=== PATIENT | female | born 1960 | race Caucasian/White ===

== ENCOUNTER 2019-06-23 10:01 | Inpatient (IN) ==
[2019-06-23] MEDS ORDERED: Ipratropium/Albuterol Neb 3 ML IH ONE (10:26)
[2019-06-23] MEDS ORDERED: methylPREDNISolone 125 MG/2 ML VIAL IVP ONE (10:26)
[2019-06-23 10:54] LABS: Basophils # 0.1 K/mcL (0.0-0.2); Basophils % 0.3 %; Eosinophils % 0.1 %; Hematocrit 37.1 % (35.3-44.9); Hemoglobin 12.7 g/dL (11.5-15.4); Lymphocytes # 1.8 K/mcL (0.6-4.6); Lymphocytes % 7.4 %; Mean Corpuscular HGB Conc 34.2 g/dL (31.6-35.5); Mean Corpuscular Hemoglobin 32.6 pg (28.0-33.3); Mean Corpuscular Volume 95.4 fL (83.0-100.0); Mean Platelet Volume 8.4 fL (9.4-12.4); Monocytes # 1.8 K/mcL (0.0-1.3); Monocytes % 7.6 %; Neutrophils # 20.1 K/mcL (1.6-8.9); Platelet Count 411 K/mcL (140-400); Red Blood Count 3.89 M/mcL (3.82-4.97); Red Cell Distribution Width 13.7 % (11.5-14.5); Segmented Neutrophils % 83.6 %; White Blood Count 24.1 K/mcL (4.3-11.1)
--- NOTE | 2019-06-23 11:10 | Emergency Department Note ---
Disposition Clinical Impression: Community acquired pneumonia Qualifiers: Laterality: unspecified laterality Qualified Code(s): J18.9 - Pneumonia, unspecified organism Sepsis Qualifiers: Sepsis type: sepsis due to unspecified organism Sepsis acute organ dysfunction status: unspecified Qualified Code(s): A41.9 - Sepsis, unspecified organism Disposition: Admitted As Inpatient Condition: Fair Time of Disposition: 15:43 General Adult HPI - General Chief complaint: ED Upper Respiratory Infection Stated complaint: cough,"choke",congestion Time Seen by Provider: 06/23/19 10:17 Source: patient Limitations: no limitations Nursing Notes Reviewed: Yes Vital Signs Reviewed: Yes - History of Present Illness Pain Scale: 0 - Related Data Home Medications Medication Instructions Recorded Confirmed No Known Home Drugs 06/23/19 06/23/19 Allergies Allergy/AdvReac Type Severity Reaction Status Date / Time No Known Allergies Allergy Verified 06/23/19 10:06 Past Medical History - Past Medical History Medical history: Reports: no medical history - Social History Smoking Status: Current every day smoker Alcohol use: Reports: none Drug use: Reports: none Physical Exam - General Limitations: no limitations General appearance: alert, in no apparent distress Course Vital Signs Temperature 98.1 F 06/23/19 10:03 Pulse Rate 122 06/23/19 10:03 Respiratory Rate 22 06/23/19 10:03 Blood Pressure 139/85 06/23/19 10:03 O2 Sat by Pulse Oximetry 88 06/23/19 10:03 Temperature 98.1 F 06/23/19 10:03 Pulse Rate 114 06/23/19 15:00 Respiratory Rate 24 06/23/19 15:00 Blood Pressure 134/80 06/23/19 15:00 O2 Sat by Pulse Oximetry 96 06/23/19 15:00 Oxygen Delivery Oxygen Delivery Nasal Cannula Medical Decision Making - [facility] Narrative Medical decision making narrative: Chest X-Ray 06/23/19 10:27 IMPRESSION: 1. Vague nodular density involving the right upper lobe. This may represent confluence of vascular shadows. However, as there are no old films to compare I would recommend CT scan chest for further evaluation. D/ / Titi Lewis MD / Titi Lewis MD Interpreting Provider: Titi Lewis MD - Lab Data Result diagrams: 06/23/19 10:38 06/23/19 10:38 Lab Results 06/23/19 06/23/19 06/23/19 Range/Units 10:38 10:38 10:38 WBC 24.1 H (4.3-11.1) K/mcL RBC 3.89 (3.82-4.97) M/mcL Hgb 12.7 (11.5-15.4) g/dL Hct 37.1 (35.3-44.9) % MCV 95.4 (83.0-100.0) fL MCH 32.6 (28.0-33.3) pg MCHC 34.2 (31.6-35.5) g/dL RDW 13.7 (11.5-14.5) % Plt Count 411 H (140-400) K/mcL MPV 8.4 L (9.4-12.4) fL Immature Gran % 1.0 (0-4) % Seg Neutrophils % 83.6 % Lymphocytes % 7.4 % Monocytes % 7.6 % Eosinophils % 0.1 % Basophils % 0.3 % Neutrophils # 20.1 H (1.6-8.9) K/mcL Lymphocytes # 1.8 (0.6-4.6) K/mcL Monocytes # 1.8 H (0.0-1.3) K/mcL Eosinophils # 0.0 (0.0-0.6) K/mcL Basophils # 0.1 (0.0-0.2) K/mcL Sodium 127 L (136-145) mEq/L Potassium 3.5 (3.5-5.1) mEq/L Chloride 90 L (98-107) mEq/L Carbon Dioxide 25 (23-29) mEq/L BUN < 2 L (6-20) mg/dL Creatinine 0.36 L (0.60-1.20) mg/dL Est GFR ( Amer) > 60 (> 60) Est GFR (Non-Af Amer) > 60 (> 60) BUN/Creatinine Ratio TNP Glucose 113 H (70-105) mg/dL Calculated Osmolality TNP Lactic Acid (0.5-2.2) mmol/L Calcium 8.2 L (8.6-10.3) mg/dL Total Bilirubin 0.3 (0.3-1.0) mg/dL Direct Bilirubin 0.1 (0.0-0.2) mg/dL Indirect Bilirubin 0.2 (0.0-1.2) mg/dL AST 74 H (13-39) Units/L ALT 32 (7-52) Units/L Alkaline Phosphatase 201 H (34-104) Units/L Troponin I < 0.03 (< 0.04) ng/mL B-Natriuretic Peptide (Less than 100) pg/mL Serum Total Protein 7.0 (6.4-8.9) g/dL Albumin 3.2 L (3.5-5.7) g/dL Globulin 3.8 H (2.4-3.5) g/dL Albumin/Globulin Ratio 0.8 L (1.1-2.2) Procalcitonin (0.00-0.15) ng/mL Urine Color (Yellow) Urine Clarity (Clear) Urine pH (5.0-8.0) pH Units Ur Specific [place] (1.010-1.025) Urine Protein (Neg-Trace) mg/dL Urine Glucose (UA) (Normal) mg/dL Urine Ketones (Negative) mg/dL Urine Blood (Negative) Urine Nitrite (Negative) Urine Bilirubin (Negative) Urine Urobilinogen (Normal) mg/dL Ur Leukocyte Esterase (Negative) Ur Culture Indicated? (NO) 06/23/19 06/23/19 06/23/19 Range/Units 10:38 10:38 10:38 WBC (4.3-11.1) K/mcL RBC (3.82-4.97) M/mcL Hgb (11.5-15.4) g/dL Hct (35.3-44.9) % MCV (83.0-100.0) fL MCH (28.0-33.3) pg MCHC (31.6-35.5) g/dL RDW (11.5-14.5) % Plt Count (140-400) K/mcL MPV (9.4-12.4) fL Immature Gran % (0-4) % Seg Neutrophils % % Lymphocytes % % Monocytes % % Eosinophils % % Basophils % % Neutrophils # (1.6-8.9) K/mcL Lymphocytes # (0.6-4.6) K/mcL Monocytes # (0.0-1.3) K/mcL Eosinophils # (0.0-0.6) K/mcL Basophils # (0.0-0.2) K/mcL Sodium (136-145) mEq/L Potassium (3.5-5.1) mEq/L Chloride (98-107) mEq/L Carbon Dioxide (23-29) mEq/L BUN (6-20) mg/dL Creatinine (0.60-1.20) mg/dL Est GFR ( Amer) (> 60) Est GFR (Non-Af Amer) (> 60) BUN/Creatinine Ratio Glucose (70-105) mg/dL Calculated Osmolality Lactic Acid 1.9 (0.5-2.2) mmol/L Calcium (8.6-10.3) mg/dL Total Bilirubin (0.3-1.0) mg/dL Direct Bilirubin (0.0-0.2) mg/dL Indirect Bilirubin (0.0-1.2) mg/dL AST (13-39) Units/L ALT (7-52) Units/L Alkaline Phosphatase (34-104) Units/L Troponin I (< 0.04) ng/mL B-Natriuretic Peptide 54 (Less than 100) pg/mL Serum Total Protein (6.4-8.9) g/dL Albumin (3.5-5.7) g/dL Globulin (2.4-3.5) g/dL Albumin/Globulin Ratio (1.1-2.2) Procalcitonin 0.42 H (0.00-0.15) ng/mL Urine Color (Yellow) Urine Clarity (Clear) Urine pH (5.0-8.0) pH Units Ur Specific [place] (1.010-1.025) Urine Protein (Neg-Trace) mg/dL Urine Glucose (UA) (Normal) mg/dL Urine Ketones (Negative) mg/dL Urine Blood (Negative) Urine Nitrite (Negative) Urine Bilirubin (Negative) Urine Urobilinogen (Normal) mg/dL Ur Leukocyte Esterase (Negative) Ur Culture Indicated? (NO) 06/23/19 Range/Units 11:50 WBC (4.3-11.1) K/mcL RBC (3.82-4.97) M/mcL Hgb (11.5-15.4) g/dL Hct (35.3-44.9) % MCV (83.0-100.0) fL MCH (28.0-33.3) pg MCHC (31.6-35.5) g/dL RDW (11.5-14.5) % Plt Count (140-400) K/mcL MPV (9.4-12.4) fL Immature Gran % (0-4) % Seg Neutrophils % % Lymphocytes % % Monocytes % % Eosinophils % % Basophils % % Neutrophils # (1.6-8.9) K/mcL Lymphocytes # (0.6-4.6) K/mcL Monocytes # (0.0-1.3) K/mcL Eosinophils # (0.0-0.6) K/mcL Basophils # (0.0-0.2) K/mcL Sodium (136-145) mEq/L Potassium (3.5-5.1) mEq/L Chloride (98-107) mEq/L Carbon Dioxide (23-29) mEq/L BUN (6-20) mg/dL Creatinine (0.60-1.20) mg/dL Est GFR ( Amer) (> 60) Est GFR (Non-Af Amer) (> 60) BUN/Creatinine Ratio Glucose (70-105) mg/dL Calculated Osmolality Lactic Acid (0.5-2.2) mmol/L Calcium (8.6-10.3) mg/dL Total Bilirubin (0.3-1.0) mg/dL Direct Bilirubin (0.0-0.2) mg/dL Indirect Bilirubin (0.0-1.2) mg/dL AST (13-39) Units/L ALT (7-52) Units/L Alkaline Phosphatase (34-104) Units/L Troponin I (< 0.04) ng/mL B-Natriuretic Peptide (Less than 100) pg/mL Serum Total Protein (6.4-8.9) g/dL Albumin (3.5-5.7) g/dL Globulin (2.4-3.5) g/dL Albumin/Globulin Ratio (1.1-2.2) Procalcitonin (0.00-0.15) ng/mL Urine Color Yellow (Yellow) Urine Clarity Clear (Clear) Urine pH 6.5 (5.0-8.0) pH Units Ur Specific [place] 1.008 L (1.010-1.025) Urine Protein Trace (Neg-Trace) mg/dL Urine Glucose (UA) Normal (Normal) mg/dL Urine Ketones Negative (Negative) mg/dL Urine Blood Negative (Negative) Urine Nitrite Negative (Negative) Urine Bilirubin Negative (Negative) Urine Urobilinogen Normal (Normal) mg/dL Ur Leukocyte Esterase Negative (Negative) Ur Culture Indicated? NO (NO) Attestation Statement - Attestation Attestation: This documentation is done with the assistance of Dragon dictation. Despite efforts made to ensure accuracy, there may be inaccuracies in cytogenetic technician or spelling and typographical errors. I examined this patient and my medical decision-making was reviewed with the Resident Physician. I agree with the documented findings, disposition and treatment plan as described except to the extent set forth below. Patient was seen and evaluated by Dr. Mckinney, I agree with their evaluation and management plan, I supervised care the patient's stay. Patient presents today with her significant other. She states she is homeless. She has been having a cough for the past week with productive sputum. History of smoking. She does live outside. She is afraid that she could have lung cancer. We will do a chest x- ray and her workup and reassess. She may need admission. She is getting breathing treatments this times that she does have a lot of wheezing. I reviewed the residents documentation and agree with the residents assessment and plan of care. I have personally had face to face time with the patient. (Brief History, Brief Exam, and MDM) I personally supervised and was present for the king/critical portions of the following procedures completed by the resident: EKG was interpreted by the resident under my supervision, I agree with their interpretation.
[2019-06-23 11:14] LABS: Albumin 3.2 g/dL (3.5-5.7); Albumin/Globulin Ratio 0.8 (1.1-2.2); Bilirubin,Direct 0.1 mg/dL (0.0-0.2); Bilirubin,Indirect 0.2 mg/dL (0.0-1.2); Bilirubin,Total 0.3 mg/dL (0.3-1.0); Globulin 3.8 g/dL (2.4-3.5)
[2019-06-23 11:23] LABS: Blood Urea Nitrogen < 2 mg/dL (6-20); Calcium 8.2 mg/dL (8.6-10.3); Carbon Dioxide 25 mEq/L (23-29); Chloride 90 mEq/L (98-107); Glucose 113 mg/dL (70-105); Potassium 3.5 mEq/L (3.5-5.1); Sodium 127 mEq/L (136-145); Troponin I < 0.03 ng/mL (< 0.04); eGFR For African Americans > 60 (> 60); eGFR For Non-African Americans > 60 (> 60)
--- NOTE | 2019-06-23 12:00 | Emergency Department Note ---
Disposition Clinical Impression: Community acquired pneumonia Qualifiers: Laterality: unspecified laterality Qualified Code(s): J18.9 - Pneumonia, unspecified organism Sepsis Qualifiers: Sepsis type: sepsis due to unspecified organism Sepsis acute organ dysfunction status: unspecified Qualified Code(s): A41.9 - Sepsis, unspecified organism Disposition: Admitted As Inpatient Condition: Fair Time of Disposition: 14:45 General Adult HPI - General Chief complaint: ED Upper Respiratory Infection Stated complaint: cough,"choke",congestion Time Seen by Provider: 06/23/19 10:17 Source: patient Mode of arrival: private vehicle Limitations: no limitations Nursing Notes Reviewed: Yes Vital Signs Reviewed: Yes - History of Present Illness HPI Narrative: 58-year-old female, currently homeless, living in a tent, that reports that she has had several years of shortness of breath, coughing, green sputum production. Patient reports that she has not been evaluated by physician for 3 years. Patient states the reason she came today is because that she had a ride, she also states that she has been coughing so much that she has been unable to eat and notes that she has been losing weight because she cannot eat. Patient denies any blood-tinged sputum. Patient states that she also feels very chilled. She denies any difficulty urinating. She denies any abdominal complaints. She states that her boyfriend who is with her states that he thinks that she has lung cancer but she does not think that she does. Patient reports a current 2 pack per day smoking habit but denies any illicit drugs. Pain Scale: 0 - Related Data Home Medications Medication Instructions Recorded Confirmed No Known Home Drugs 06/23/19 06/23/19 Allergies Allergy/AdvReac Type Severity Reaction Status Date / Time No Known Allergies Allergy Verified 06/23/19 10:06 Review of Systems: In addition to that documented in the HPI above, the additional ROS was obtained: Constitutional: Denies fevers Reports chills Eyes: Denies vision changes ENMT: Denies sore throat CV: Denies chest pain Resp: Reports SOB GI: Denies vomiting or diarrhea : Denies painful urination MSK: Denies recent trauma Skin: Denies new rashes Neuro: Denies new numbness or tingling or weakness Endocrine: Reports recent weight loss Past Medical History - Past Medical History Attestation: Yes The following information was validated with the patient. Medical history: Reports: no medical history - Social History Smoking Status: Current every day smoker Alcohol use: Reports: none Drug use: Reports: none Physical Exam General: A&O x 3. No acute distress. Thin, cachetic. Disheveled. Has visible soiling on her skin. Head: atraumatic, normocephalic. ENT: No conjunctival injection, no scleral icterus. PERRLA. EOMI. Oropharynx non-erythematous. mucous membranes dry. Neuro: No focal deficits, no speech deficit, no facial droop, mentating well. BUE/BLE Str 5/5. Pulm: Diffuse expiratory wheezes with prolonged expiratory phase. Cardio: Tachycardic. Chest not tender to palpation. Abd: Soft, non-distended. Normoactive bowel sounds. Non-tender to palpation. No guarding. Non rigid. Extremities: Radial pulses 2+ mich, dorsalis pedis/posterior tibialis 2+ mich. No LE edema. No cyanosis, clubbing. Skin: warm, dry, intact. No rashes. Psych: Appropriate mood and affect. Answers questions appropriately. Cooperative with exam. - General Limitations: no limitations General appearance: alert, in no apparent distress Course Vital Signs Temperature 98.1 F 06/23/19 10:03 Pulse Rate 122 06/23/19 10:03 Respiratory Rate 22 06/23/19 10:03 Blood Pressure 139/85 06/23/19 10:03 O2 Sat by Pulse Oximetry 88 06/23/19 10:03 Temperature 98.1 F 06/23/19 10:03 Pulse Rate 114 06/23/19 15:00 Respiratory Rate 24 06/23/19 15:00 Blood Pressure 134/80 06/23/19 15:00 O2 Sat by Pulse Oximetry 96 06/23/19 15:00 Oxygen Delivery Oxygen Delivery Nasal Cannula Medical Decision Making - [facility] Narrative Medical decision making narrative: 58F homeless female that reports cough/sputum production/SOB for the last several years, but came today because she had a ride. Pt has diffuse wheezes in all ceballos. Will administer breathing treatments, steroids, check labs, CXR. Disposition pending. Patient's chest x-ray was not conclusive for pneumonia, however patient has clinical signs of pneumonia given her chills, cough, increased sputum production, tachycardia, leukocytosis with neutrophil predominance. Patient was given fluid while in the department, she was covered with Zithromax and ceftriaxone. Patient was admitted to the hospitalist Dr. Solitario who agreed to accept the patient to service. Patient remained stable while in the department. The results of her workup shared with her at bedside. - Medical Records Medical records reviewed: Yes I reviewed the patient's medical records. - Lab Data Lab results reviewed: Yes I reviewed the patient's lab results. Result diagrams: 06/23/19 10:38 06/23/19 10:38 Lab Results 06/23/19 06/23/19 06/23/19 Range/Units 10:38 10:38 10:38 WBC 24.1 H (4.3-11.1) K/mcL RBC 3.89 (3.82-4.97) M/mcL Hgb 12.7 (11.5-15.4) g/dL Hct 37.1 (35.3-44.9) % MCV 95.4 (83.0-100.0) fL MCH 32.6 (28.0-33.3) pg MCHC 34.2 (31.6-35.5) g/dL RDW 13.7 (11.5-14.5) % Plt Count 411 H (140-400) K/mcL MPV 8.4 L (9.4-12.4) fL Immature Gran % 1.0 (0-4) % Seg Neutrophils % 83.6 % Lymphocytes % 7.4 % Monocytes % 7.6 % Eosinophils % 0.1 % Basophils % 0.3 % Neutrophils # 20.1 H (1.6-8.9) K/mcL Lymphocytes # 1.8 (0.6-4.6) K/mcL Monocytes # 1.8 H (0.0-1.3) K/mcL Eosinophils # 0.0 (0.0-0.6) K/mcL Basophils # 0.1 (0.0-0.2) K/mcL Sodium 127 L (136-145) mEq/L Potassium 3.5 (3.5-5.1) mEq/L Chloride 90 L (98-107) mEq/L Carbon Dioxide 25 (23-29) mEq/L BUN < 2 L (6-20) mg/dL Creatinine 0.36 L (0.60-1.20) mg/dL Est GFR ( Amer) > 60 (> 60) Est GFR (Non-Af Amer) > 60 (> 60) BUN/Creatinine Ratio TNP Glucose 113 H (70-105) mg/dL Calculated Osmolality TNP Lactic Acid (0.5-2.2) mmol/L Calcium 8.2 L (8.6-10.3) mg/dL Total Bilirubin 0.3 (0.3-1.0) mg/dL Direct Bilirubin 0.1 (0.0-0.2) mg/dL Indirect Bilirubin 0.2 (0.0-1.2) mg/dL AST 74 H (13-39) Units/L ALT 32 (7-52) Units/L Alkaline Phosphatase 201 H (34-104) Units/L Troponin I < 0.03 (< 0.04) ng/mL B-Natriuretic Peptide (Less than 100) pg/mL Serum Total Protein 7.0 (6.4-8.9) g/dL Albumin 3.2 L (3.5-5.7) g/dL Globulin 3.8 H (2.4-3.5) g/dL Albumin/Globulin Ratio 0.8 L (1.1-2.2) Procalcitonin (0.00-0.15) ng/mL Urine Color (Yellow) Urine Clarity (Clear) Urine pH (5.0-8.0) pH Units Ur Specific [place] (1.010-1.025) Urine Protein (Neg-Trace) mg/dL Urine Glucose (UA) (Normal) mg/dL Urine Ketones (Negative) mg/dL Urine Blood (Negative) Urine Nitrite (Negative) Urine Bilirubin (Negative) Urine Urobilinogen (Normal) mg/dL Ur Leukocyte Esterase (Negative) Ur Culture Indicated? (NO) 06/23/19 06/23/19 06/23/19 Range/Units 10:38 10:38 10:38 WBC (4.3-11.1) K/mcL RBC (3.82-4.97) M/mcL Hgb (11.5-15.4) g/dL Hct (35.3-44.9) % MCV (83.0-100.0) fL MCH (28.0-33.3) pg MCHC (31.6-35.5) g/dL RDW (11.5-14.5) % Plt Count (140-400) K/mcL MPV (9.4-12.4) fL Immature Gran % (0-4) % Seg Neutrophils % % Lymphocytes % % Monocytes % % Eosinophils % % Basophils % % Neutrophils # (1.6-8.9) K/mcL Lymphocytes # (0.6-4.6) K/mcL Monocytes # (0.0-1.3) K/mcL Eosinophils # (0.0-0.6) K/mcL Basophils # (0.0-0.2) K/mcL Sodium (136-145) mEq/L Potassium (3.5-5.1) mEq/L Chloride (98-107) mEq/L Carbon Dioxide (23-29) mEq/L BUN (6-20) mg/dL Creatinine (0.60-1.20) mg/dL Est GFR ( Amer) (> 60) Est GFR (Non-Af Amer) (> 60) BUN/Creatinine Ratio Glucose (70-105) mg/dL Calculated Osmolality Lactic Acid 1.9 (0.5-2.2) mmol/L Calcium (8.6-10.3) mg/dL Total Bilirubin (0.3-1.0) mg/dL Direct Bilirubin (0.0-0.2) mg/dL Indirect Bilirubin (0.0-1.2) mg/dL AST (13-39) Units/L ALT (7-52) Units/L Alkaline Phosphatase (34-104) Units/L Troponin I (< 0.04) ng/mL B-Natriuretic Peptide 54 (Less than 100) pg/mL Serum Total Protein (6.4-8.9) g/dL Albumin (3.5-5.7) g/dL Globulin (2.4-3.5) g/dL Albumin/Globulin Ratio (1.1-2.2) Procalcitonin 0.42 H (0.00-0.15) ng/mL Urine Color (Yellow) Urine Clarity (Clear) Urine pH (5.0-8.0) pH Units Ur Specific [place] (1.010-1.025) Urine Protein (Neg-Trace) mg/dL Urine Glucose (UA) (Normal) mg/dL Urine Ketones (Negative) mg/dL Urine Blood (Negative) Urine Nitrite (Negative) Urine Bilirubin (Negative) Urine Urobilinogen (Normal) mg/dL Ur Leukocyte Esterase (Negative) Ur Culture Indicated? (NO) 06/23/19 Range/Units 11:50 WBC (4.3-11.1) K/mcL RBC (3.82-4.97) M/mcL Hgb (11.5-15.4) g/dL Hct (35.3-44.9) % MCV (83.0-100.0) fL MCH (28.0-33.3) pg MCHC (31.6-35.5) g/dL RDW (11.5-14.5) % Plt Count (140-400) K/mcL MPV (9.4-12.4) fL Immature Gran % (0-4) % Seg Neutrophils % % Lymphocytes % % Monocytes % % Eosinophils % % Basophils % % Neutrophils # (1.6-8.9) K/mcL Lymphocytes # (0.6-4.6) K/mcL Monocytes # (0.0-1.3) K/mcL Eosinophils # (0.0-0.6) K/mcL Basophils # (0.0-0.2) K/mcL Sodium (136-145) mEq/L Potassium (3.5-5.1) mEq/L Chloride (98-107) mEq/L Carbon Dioxide (23-29) mEq/L BUN (6-20) mg/dL Creatinine (0.60-1.20) mg/dL Est GFR ( Amer) (> 60) Est GFR (Non-Af Amer) (> 60) BUN/Creatinine Ratio Glucose (70-105) mg/dL Calculated Osmolality Lactic Acid (0.5-2.2) mmol/L Calcium (8.6-10.3) mg/dL Total Bilirubin (0.3-1.0) mg/dL Direct Bilirubin (0.0-0.2) mg/dL Indirect Bilirubin (0.0-1.2) mg/dL AST (13-39) Units/L ALT (7-52) Units/L Alkaline Phosphatase (34-104) Units/L Troponin I (< 0.04) ng/mL B-Natriuretic Peptide (Less than 100) pg/mL Serum Total Protein (6.4-8.9) g/dL Albumin (3.5-5.7) g/dL Globulin (2.4-3.5) g/dL Albumin/Globulin Ratio (1.1-2.2) Procalcitonin (0.00-0.15) ng/mL Urine Color Yellow (Yellow) Urine Clarity Clear (Clear) Urine pH 6.5 (5.0-8.0) pH Units Ur Specific [place] 1.008 L (1.010-1.025) Urine Protein Trace (Neg-Trace) mg/dL Urine Glucose (UA) Normal (Normal) mg/dL Urine Ketones Negative (Negative) mg/dL Urine Blood Negative (Negative) Urine Nitrite Negative (Negative) Urine Bilirubin Negative (Negative) Urine Urobilinogen Normal (Normal) mg/dL Ur Leukocyte Esterase Negative (Negative) Ur Culture Indicated? NO (NO) - Radiology Data Radiology results reviewed: Yes I reviewed the patient's radiology results. Chest X-Ray 06/23/19 10:27 IMPRESSION: 1. Vague nodular density involving the right upper lobe. This may represent confluence of vascular shadows. However, as there are no old films to compare I would recommend CT scan chest for further evaluation. D/ / Titi Lewis MD / Titi Lewis MD Interpreting Provider: Titi Lewis MD - EKG Data EKG #1 EKG attestation: Yes I reviewed and interpreted this EKG. EKG results narrative: Heart rate 108, rhythm sinus tachycardia, axis normal. SD 109 and shortened, other intervals within normal limits. No ST segment elevation or depression. No old EKG available for comparison.
[2019-06-23 12:12] LABS: Bilirubin,Urine Negative (Negative); Blood,Urine Negative (Negative); Clarity,Urine Clear (Clear); Color,Urine Yellow (Yellow); Glucose,Urine (UA) Normal (Normal); Ketones,Urine Negative (Negative); Leukocyte Esterase,Urine Negative (Negative); Nitrite,Urine Negative (Negative); PH,Urine 6.5 pH Units (5.0-8.0); Protein,Urine Trace mg/dL (Neg-Trace); Specific Gravity,Urine 1.008 (1.010-1.025); Urobilinogen,Urine Normal (Normal)
[2019-06-23] MEDS ORDERED: cefTRIAXone 1,000 MG in 0.9 % Sodium Chloride Mini Bag 100 ML IVPB ONE (12:28)
[2019-06-23] MEDS ORDERED: Azithromycin 250 MG TABLET PO ONE (12:28)
[2019-06-23] MEDS ORDERED: 0.9 % Sodium Chloride 1,000 ML IVC ONE (14:37)
[2019-06-23] MEDS ORDERED: Isovue-370 500 ML BOTTLE IVP ONE (15:00)
--- NOTE | 2019-06-23 16:13 | Electrocardiograph Report ---
[address] [address] Test Date: 2019-06-23 Pat Name: Eli Stewart Department: EXAM12 Room: 3B22 Gender: F Marketing Rep: : [id number] Requested By: Bridget Mckinney Order Number: [id number] Reading MD: Wild Puente Measurements Intervals [place] Rate: 108 P: 64 RI: 109 QRS: 77 QRSD: 83 T: 58 QT: 325 QTc: 436 Interpretive Statements Sinus tachycardia Electronically Signed On 06-23-2019 16:12:22 EDT by Wild Puente
[2019-06-23] MEDS ORDERED: *HR* Promethazine 25 MG/ML VIAL IVP PRN (16:21)
[2019-06-23] MEDS ORDERED: Ondansetron ODT 4 MG TAB.RAPDIS SL PRN (16:21)
[2019-06-23] MEDS ORDERED: Naloxone 0.4 MG/ML INJ IVP PRN (16:21)
--- NOTE | 2019-06-23 18:44 | Internal Med History&Physical ---
Date of Encounter: 06/23/19 Time of Encounter: 18:40 Internal Medicine - H&P: HPI Chief complaint: Cough Admitted From: Home Plans for Post Hospital Care: Home History of present illness: Ms. Stewart is a 58 year old female with history of tobacco abuse, alcohol abuse, and homelessness presents with productive cough. Patient is a 2 pack per day smoker and is noted she has had a cough productive of green sputum over the last year and has been becoming progressively more severe over the last week. Denies hemoptysis but is having subjective fevers and chills. Has dyspnea on exertion that she says is secondary to her smoking but denies shortness of breath at rest. Denies pain with breathing or chest pain. No lower extremity edema. No sick contacts. Has noted 20 pound weight loss over the last year but denies night sweats. Past Med Surg Social Fam HX - Past Medical History Medical history: no medical history - Social History Smoking Status: Current every day smoker Alcohol use: none Drug use: none Internal Medicine - H&P: Meds No Known Home Drugs 06/23/19 [History] Allergy/AdvReac Type Severity Reaction Status Date / Time No Known Allergies Allergy Verified 06/23/19 10:06 All Systems PM: A 10-system review of systems was performed and is negative for pertinent findings except as documented above in the HPI. Review of systems: General: Fevers / Chills / Weight loss / Night sweats Eyes: Blurry Vision / Change in Vision HENT: Ear Pain / Ear Drainage / Rhinorrhea / Throat Pain / Lymphadenopathy Cardiovascular: Chest Pain / Palpatations / Orthopnea / KUNZ / Weight gain Lungs: Dyspnea / Wheezing / Cough / Sputum production / Pleurisy Abdomen: Abdomen pain / Abdominal distention / Nausea / Vomiting / Diarrhea / Const : Dysuria / Urinary Frequency / Urinary Urgency / Hematuria Extremities: LE edema / Ext pain / Ext erythema Skin: Rashes / Abrasions / Contusions Psych: Hallucinations / Anxiety / Depression Neuro: Weakness / Numbness / Tingling / Facial Droop / Dysphagia - Constitutional Vitals: Temp Pulse Resp BP Pulse Ox 98.3 F 111 18 157/89 96 06/23/19 16:02 06/23/19 16:02 06/23/19 16:02 06/23/19 16:02 06/23/19 16:02 Exam: General: Disheveled appearing. HEENT: No erythema of posterior pharynx. No exudates. Lymphatics: No mandibular or cervical lymphadenopathy Cardiovascular: RRR. No murmurs. No chest wall tenderness. Lungs: Decreased breath sounds throughout. Faint scattered wheezes. Regular chest rise. Abdomen: Non-tender. No rebound or gaurding. Nl bowel sounds. Extremities: No edema. 2+ pulses radial and pedal pulses Skin: No rahses, abrasions, or contusions. Nl cap refill. Psych: Nl attention. A&Ox3 Neuro: railroad operator II-XII intact. 5/5 strength. Sensation to light touch and pinprick intact. Internal Med - H&P Results - Labs CBC & Chem 7: 06/23/19 10:38 06/23/19 10:38 Labs: Short CBC 06/23/19 Range/Units 10:38 WBC 24.1 H (4.3-11.1) K/mcL Hgb 12.7 (11.5-15.4) g/dL Hct 37.1 (35.3-44.9) % Plt Count 411 H (140-400) K/mcL Neutrophils # 20.1 H (1.6-8.9) K/mcL BMP 06/23/19 10:38 Sodium 127 L Potassium 3.5 Chloride 90 L Carbon Dioxide 25 BUN < 2 L Creatinine 0.36 L Glucose 113 H Calcium 8.2 L Cardiac Enzymes 06/23/19 Range/Units 10:38 Troponin I < 0.03 (< 0.04) ng/mL Liver Function 06/23/19 Range/Units 10:38 Total Bilirubin 0.3 (0.3-1.0) mg/dL Direct Bilirubin 0.1 (0.0-0.2) mg/dL AST 74 H (13-39) Units/L ALT 32 (7-52) Units/L Alkaline Phosphatase 201 H (34-104) Units/L Albumin 3.2 L (3.5-5.7) g/dL Urine 06/23/19 Range/Units 11:50 Urine Color Yellow (Yellow) Urine Clarity Clear (Clear) Urine pH 6.5 (5.0-8.0) pH Units Ur Specific [place] 1.008 L (1.010-1.025) Urine Protein Trace (Neg-Trace) mg/dL Urine Glucose (UA) Normal (Normal) mg/dL - Impressions ITS Impressions Chest X-Ray 06/23/19 10:27 IMPRESSION: 1. Vague nodular density involving the right upper lobe. This may represent confluence of vascular shadows. However, as there are no old films to compare I would recommend CT scan chest for further evaluation. D/ / Titi Lewis MD / Titi Lewis MD Interpreting Provider: Titi Lewis MD Chest CT 06/23/19 15:00 IMPRESSION: Findings on prior chest x-ray correspond to innumerable solid, subsolid and tree-in-bud opacities throughout the lungs bilaterally. The largest measures up to 1.9 cm in the right upper lobe. Findings could be infectious, though given mediastinal lymphadenopathy and sternal lesion metastatic disease remains a possibility. Mediastinal lymphadenopathy measuring up to 1.8 cm in short axis. Consider tissue sampling by bronchoscopy as malignancy remains a possibility. Suspicious sclerotic lesion in the sternum. This could be further evaluated by PET-CT. The findings were sent to the [facility]iology [facility] at 4:05 pm on 06/23/2019to be communicated to a licensed caregiver. D/ / Edmond Merrill MD / Edmond Merrill MD Interpreting Provider: Edmond Merrill MD - Assessment and Plan (1) Sepsis Current Visit: Yes Status: Acute Assessment and plan: Patient with extensive history of smoking presents with productive cough in the setting of meeting sepsis criteria on admission (tachycardia and leukocytosis) with CT imaging concerning for infectious versus neoplastic process. -CT chest with "tree-in-bud opacities throughout the lungs bilaterally. The largest measures up to 1.9 cm in the right upper lobe." Also with mediastinal lymphadenopathy. -Will treat for infectious process while undergoing further workup for neoplastic process PLAN: - S/p 30cc/kg IVF - Ceftriaxone and Azithomycin - Sputum culture - Urine strep and legionella - Duo-nebs q6 - Minimal wheezing on exam so will hold off on further steroids Qualifiers: Sepsis type: sepsis due to unspecified organism Sepsis acute organ dysfunction status: without acute organ dysfunction Qualified Code(s): A41.9 - Sepsis, unspecified organism (2) Community acquired pneumonia Current Visit: Yes Status: Acute Assessment and plan: See above Qualifiers: Laterality: right Lung location: unspecified part of lung Qualified Code(s): J18.9 - Pneumonia, unspecified organism (3) Concern about cancer without diagnosis Current Visit: Yes Status: Acute Assessment and plan: Hx of weight loss and CT chest with "tree-in-bud opacities throughout the lungs bilaterally. The largest measures up to 1.9 cm in the right upper lobe." Also with mediastinal lymphadenopathy. -Mediastinal lymphadenopathy may be accessible by bronchoscopy for biopsy PLAN: - Consult to pulmonology - Nothing by mouth at midnight for possible bronchoscopy tomorrow (4) Abnormal CT of the chest Current Visit: Yes Status: Acute Assessment and plan: See above (5) Alcohol abuse Current Visit: Yes Status: Acute Assessment and plan: Will have nursing assess for alcohol withdrawal and initiate CIWA if positive. (6) Tobacco abuse Current Visit: Yes Status: Acute Assessment and plan: Nicotine patch
[2019-06-23] MEDS: Ipratropium/Albuterol Neb 3 ML IH SCH ×2 (20:27→20:39)
[2019-06-23] MEDS: Acetaminophen 325 MG TABLET PO PRN (20:52)
[2019-06-23] MEDS: Nicotine 21 MG PATCH.TD24 TD SCH (20:53)
[2019-06-24 02:20] LABS: Basophils % 0.1 %; Hematocrit 34.6 % (35.3-44.9); Hemoglobin 12.1 g/dL (11.5-15.4); Immature Granulocytes % 0.6 % (0-4); Lymphocytes # 0.6 K/mcL (0.6-4.6); Lymphocytes % 3.8 %; Mean Corpuscular Hemoglobin 32.4 pg (28.0-33.3); Mean Corpuscular Volume 92.8 fL (83.0-100.0); Mean Platelet Volume 8.8 fL (9.4-12.4); Monocytes # 0.3 K/mcL (0.0-1.3); Monocytes % 1.9 %; Neutrophils # 14.1 K/mcL (1.6-8.9); Platelet Count 421 K/mcL (140-400); Red Blood Count 3.73 M/mcL (3.82-4.97); Red Cell Distribution Width 13.3 % (11.5-14.5); Segmented Neutrophils % 93.6 %; White Blood Count 15.1 K/mcL (4.3-11.1)
[2019-06-24 02:44] LABS: BUN/Creatinine Ratio 15 (6-26); Blood Urea Nitrogen 7 mg/dL (6-20); Calcium 7.9 mg/dL (8.6-10.3); Carbon Dioxide 23 mEq/L (23-29); Chloride 91 mEq/L (98-107); Glucose 339 mg/dL (70-105); Osmolality,Calculated 275 (280-300); Potassium 3.5 mEq/L (3.5-5.1); Sodium 127 mEq/L (136-145); eGFR For African Americans > 60 (> 60); eGFR For Non-African Americans > 60 (> 60)
[2019-06-24] MEDS: traMADol 50 MG TABLET PO PRN ×2 (03:59→20:15)
[2019-06-24] MEDS: Ipratropium/Albuterol Neb 3 ML IH SCH ×4 (04:07→22:08)
[2019-06-24] MEDS ORDERED: Acetaminophen IV 500 MG/50 ML INFUS..BTL IVPB ONE (05:59)
--- NOTE | 2019-06-24 08:58 | Pulmonology Consult Note ---
<Gurmeet Rviera M - Last Filed: 06/24/19 13:20> Date of Encounter: 06/24/19 Time of Encounter: 09:00 Assessment and Plan (1) Abnormal CT of the chest Current Visit: Yes Status: Acute CT Chest results reveal multiple opacities B/L throughout the lungs; solid, subsolid and tree-in-bud opacities noted concerning for infection vs cancer Also has mediastinal Lymphadenopathy with a suspicous sclerotic lesion of the sternum. Patient has significant smoking history, 2ppd x 40yrs. Additional concerns for cancer include recent 20lb weight loss in addition to night sweats. Alternatively, she does present with S/S of infection; cough with increasing sputum production, tachycardia, leukocytosis, subjective fevers Additional risk factors for atypical/pseudomonal infection include homelessness and emphysema Patient started on Ceftriaxone, Zithromycin and given one round solumedrol Discussed findings at length with patient who does demonstrate overall poor insight and there is concern regarding her ability to follow up O/P. Discussed possibility of ABX inpatient with 4wk follow up for repeat CT and possible Bronch/Biopsy at that time. Given concern for failure to follow-up will discuss with patient again tomorrow regarding possible inpatient bronchoscopy Plan: -Vanc/Levaquin/Doxy -Will resume steroids -Will order fungal/atypicals workup - (2) Concern about cancer without diagnosis Current Visit: Yes Status: Acute Unintentional Weight Loss, Night sweats, suspicious CT chest findings with roughly [id number] smoking history Plan as above Bronchoscopy with mediastinal lymph node biopsy inpatient vs outpatient still to be determined, will discuss more with patient tomorrow who had difficulty deciding/agreeing to plan of care (3) Sepsis Current Visit: Yes Status: Acute Patient did have tachycardia with leukocytosis on admission Recent worsening cough with increasing sputum production Subjective fevers but afebrile during admission Plan as above Vanc/Levaquin/Doxy Fungal/Aytpicals workup Qualifiers: Sepsis type: sepsis due to unspecified organism Sepsis acute organ dysfunction status: without acute organ dysfunction Qualified Code(s): A41.9 - Sepsis, unspecified organism History of Present Illness Consult date: 06/24/19 Reason for consult: lung mass Chief complaint: cough History of present illness: Miss Stewart is a 58-year-old female with a past medical history alcohol abuse, tobacco abuse, homelessness who presented to the emergency department for the complaint of worsening cough with sputum production. Patient stated she had been experiencing very productive cough for roughly one year's duration worsening in severity with constant green mucus production. She denies any significant dyspnea other than on extreme exertion secondary to tobacco abuse. Patient does admit to 2 pack per day smoking history of roughly 40 years duration. She denies any recent hospitalizations and denies any known history of COPD. However, she states she has not seen a doctor in many years. The patient does admit to fevers, chills for the last several days in addition to a roughly 20 pound weight loss over the last year. She did admit to night sweats at one time however when questioned again about this she declined night sweats. In the ED, patient was hypoxic at 88% on room air, respiratory rate 22, heart rate 122, afebrile normotensive. Patient's respiratory status quickly improved with nasal cannula. Labs revealed leukocytosis 24.1, thrombocytosis 411, hyponatremia 127, chloride 90, BUN 2, creatinine 0.36, glucose 113, calcium 8.2, AST 74, alkaline phosphatase 201. Chest CT was performed which revealed innumerable solid, some solid, tree-in-bud opacities throughout the lungs bilaterally largest being 1.9 cm in the right upper lobe. Additionally the patient did have mediastinal lymphadenopathy and a suspicious sclerotic lesion in the sternum suspicious for metastasis. Patient was started on antibiotics and pulmonology was consulted for recommendations and possible bronchoscopy. Past Med Surg Social Fam HX - Past Medical History Medical history: no medical history - Social History Smoking Status: Current every day smoker Alcohol use: none Drug use: none Medications and Allergies No Known Home Drugs 06/23/19 [History] Allergy/AdvReac Type Severity Reaction Status Date / Time No Known Allergies Allergy Verified 06/23/19 20:40 All Systems: The remainder of the systems were reviewed and are negative - Constitutional Constitutional: chills, excessive sweating, fever(s), night sweats, weight loss - Cardiovascular Cardiovascular: dyspnea on exertion, no dyspnea, no edema, no palpitations, no syncope - Respiratory Respiratory: cough, excessive phlegm production, change in phlegm color, no hemoptysis, no wheezing, no pain with cough - Musculoskeletal Musculoskeletal: arthralgias, back pain - Integumentary Integumentary: no jaundice Physical Examination Vital Signs: Vital Signs, Last 4 Hours Temp Pulse Resp BP Pulse Ox 06/24/19 07:59 97.8 F 91 19 169/96 92 Results - Laboratory Findings CBC and BMP: 06/24/19 01:43 06/24/19 01:43 Abnormal lab findings: Abnormal lab results WBC 15.1 K/mcL (4.3-11.1) H 06/24/19 01:43 RBC 3.73 M/mcL (3.82-4.97) L 06/24/19 01:43 Hct 34.6 % (35.3-44.9) L 06/24/19 01:43 Plt Count 421 K/mcL (140-400) H 06/24/19 01:43 MPV 8.8 fL (9.4-12.4) L 06/24/19 01:43 Neutrophils # 14.1 K/mcL (1.6-8.9) H 06/24/19 01:43 Monocytes # 1.8 K/mcL (0.0-1.3) H 06/23/19 10:38 Sodium 127 mEq/L (136-145) L 06/24/19 01:43 Chloride 91 mEq/L (98-107) L 06/24/19 01:43 BUN < 2 mg/dL (6-20) L 06/23/19 10:38 Creatinine 0.47 mg/dL (0.60-1.20) L 06/24/19 01:43 Glucose 339 mg/dL (70-105) H 06/24/19 01:43 Calculated Osmolality 275 (280-300) L 06/24/19 01:43 Calcium 7.9 mg/dL (8.6-10.3) L 06/24/19 01:43 AST 74 Units/L (13-39) H 06/23/19 10:38 Alkaline Phosphatase 201 Units/L (34-104) H 06/23/19 10:38 Albumin 3.2 g/dL (3.5-5.7) L 06/23/19 10:38 Globulin 3.8 g/dL (2.4-3.5) H 06/23/19 10:38 Albumin/Globulin Ratio 0.8 (1.1-2.2) L 06/23/19 10:38 Procalcitonin 0.42 ng/mL (0.00-0.15) H 06/23/19 10:38 Ur Specific [place] 1.008 (1.010-1.025) L 06/23/19 11:50 - Microbiology Findings Microbiology Findings: Microbiology, Last 48 Hours 06/23/19 10:38 Blood Culture - Preliminary Peripheral Venipuncture Culture is incubating and being continuously m onitored for growth. Final report to follow. 06/23/19 10:38 Blood Culture - Preliminary Peripheral Venipuncture Culture is incubating and being continuously monitored for growth. Final report to follow. - Clinical Findings Intake & Output: Intake & Output 06/23/19 06/24/19 06/24/19 23:59 07:59 15:59 Weight 41.73 kg Consult Discharge Plan - Plan Referrals: Selma Guerrero DO [Resident] - 07/03/19 2:00 pm (Please arrive at your appointment one half hour prior to appointment time. Bring ID, insurance cards, and medications within their original bottles to appointment. Please calll 24 hours prior to reschedule and/or cancel. [phone].) <Catrachito Leiva S - Last Filed: 06/24/19 21:24> Date of Encounter: 06/24/19 All Systems: The remainder of the systems were reviewed and are negative Physical Examination Vital Signs: Vital Signs, Last 4 Hours Temp Pulse Resp BP Pulse Ox 06/24/19 19:17 97.5 F L 92 16 158/97 97 Results - Laboratory Findings CBC and BMP: 06/24/19 01:43 06/24/19 01:43 Abnormal lab findings: Abnormal lab results WBC 15.1 K/mcL (4.3-11.1) H 06/24/19 01:43 RBC 3.73 M/mcL (3.82-4.97) L 06/24/19 01:43 Hct 34.6 % (35.3-44.9) L 06/24/19 01:43 Plt Count 421 K/mcL (140-400) H 06/24/19 01:43 MPV 8.8 fL (9.4-12.4) L 06/24/19 01:43 Neutrophils # 14.1 K/mcL (1.6-8.9) H 06/24/19 01:43 Monocytes # 1.8 K/mcL (0.0-1.3) H 06/23/19 10:38 Sodium 127 mEq/L (136-145) L 06/24/19 01:43 Chloride 91 mEq/L (98-107) L 06/24/19 01:43 BUN < 2 mg/dL (6-20) L 06/23/19 10:38 Creatinine 0.47 mg/dL (0.60-1.20) L 06/24/19 01:43 Glucose 339 mg/dL (70-105) H 06/24/19 01:43 Calculated Osmolality 275 (280-300) L 06/24/19 01:43 Calcium 7.9 mg/dL (8.6-10.3) L 06/24/19 01:43 AST 74 Units/L (13-39) H 06/23/19 10:38 Alkaline Phosphatase 201 Units/L (34-104) H 06/23/19 10:38 Albumin 3.2 g/dL (3.5-5.7) L 06/23/19 10:38 Globulin 3.8 g/dL (2.4-3.5) H 06/23/19 10:38 Albumin/Globulin Ratio 0.8 (1.1-2.2) L 06/23/19 10:38 Procalcitonin 0.42 ng/mL (0.00-0.15) H 06/23/19 10:38 Ur Specific [place] 1.008 (1.010-1.025) L 06/23/19 11:50 - Microbiology Findings Microbiology Findings: Microbiology, Last 48 Hours 06/23/19 16:50 Legionella Antigen - Final Urine,Clean Catch Streptococcus pneumoniae Antigen (M - Final 06/23/19 10:38 Blood Culture - Preliminary Peripheral Venipuncture Culture is incubating and being continuously monitored for growth. Final report to follow. 06/23/19 10:38 Blood Culture - Preliminary Peripheral Venipuncture Culture is incubating and being continuously monitored for growth. Final report to follow. - Clinical Findings Intake & Output: Intake & Output 06/24/19 06/24/19 06/24/19 07:59 15:59 23:59 Intake Total 320 / 1670 1350 / 1670 Balance 320 / 1670 1350 / 1670 Weight 41.73 kg - Attending Attestation I saw and evaluated this patient and my medical decision-making was reviewed with the Resident Physician. I agree with the documented findings, disposition and treatment plan as described except to the extent set forth below. We independently had [id number] contact with the patient Patient seen and examined at bedside Labs, radiology, chart personally reviewed. Management was reviewed during multidisciplinary critical care rounds. Patient with chronic smoker loss of weight cough and sputum production with some fever or chills and generalized constitutional symptoms, further evaluation for possible COPD exacerbation patient had a CTA that showed evidence of pulmonary embolism patient has bilateral extensive tree in bud Opacities is nothing bronchiolar mucus impaction . Because can be multifactorial infectious/inflammatory will work for bacterial causes/atypical bacteria and also fungal causes patient also has a discrete mediastinal lymphadenopathy can be INFLAMMATORY and reactive discussed imaging with interventional architectural modeler. I offered her bronchoscopy with BAL versus endobronchial ultrasound with BAL patient declined about procedure at the moment we will revisit tomorrow as patient has a alcohol withdrawal symptoms and anxiety tomorrow discuss with her boyfriend about the plan of care.
[2019-06-24] MEDS ORDERED: Azithromycin 500 MG in 0.9 % Sodium Chloride 250 ML IVPB SCH (09:00)
[2019-06-24] MEDS ORDERED: cefTRIAXone 2,000 MG in Water for inj. (sterile) 20 ML IVP SCH (09:00)
[2019-06-24] MEDS: Nicotine 21 MG PATCH.TD24 TD SCH (09:20)
[2019-06-24] MEDS: *HR* LORazepam 1 MG TABLET PO PRN ×3 (11:16→20:15)
[2019-06-24] MEDS ORDERED: *HR* LORazepam 2 MG/ML VIAL IVP PRN ×2 (11:50)
[2019-06-24] MEDS ORDERED: *HR* Promethazine 25 MG/ML VIAL IVP PRN (11:50)
[2019-06-24] MEDS: levoFLOXacin 750 MG/150 ML 750 MG/150 ML BAG IVPB SCH ×2 (16:36→19:24)
[2019-06-24] MEDS: predniSONE 20 MG TABLET PO SCH (18:26)
[2019-06-24] MEDS: Doxycycline 100 MG in 0.9 % Sodium Chloride Mini Bag 100 ML IVPB SCH (18:26)
[2019-06-25] MEDS: Piperacillin/Tazobactam 3.375 GM in 0.9 % Sodium Chloride Mini Bag 100 ML IVPB SCH ×3 (00:35→15:35)
[2019-06-25] MEDS: Vancomycin 500 MG in 0.9 % Sodium Chloride Mini Bag 100 ML IVPB SCH ×2 (02:44→15:36)
[2019-06-25] MEDS: traMADol 50 MG TABLET PO PRN ×3 (02:54→15:45)
[2019-06-25] MEDS: *HR* LORazepam 1 MG TABLET PO PRN (02:54)
[2019-06-25] MEDS: Ipratropium/Albuterol Neb 3 ML IH SCH ×4 (03:41→22:52)
[2019-06-25] MEDS: Doxycycline 100 MG in 0.9 % Sodium Chloride Mini Bag 100 ML IVPB SCH ×2 (05:49→16:50)
[2019-06-25 06:12] LABS: Basophils % 0.1 %; Hematocrit 32.6 % (35.3-44.9); Hemoglobin 11.4 g/dL (11.5-15.4); Immature Granulocytes % 0.8 % (0-4); Lymphocytes # 0.8 K/mcL (0.6-4.6); Lymphocytes % 10.1 %; Mean Corpuscular Hemoglobin 32.9 pg (28.0-33.3); Mean Corpuscular Volume 93.9 fL (83.0-100.0); Mean Platelet Volume 8.5 fL (9.4-12.4); Monocytes # 0.4 K/mcL (0.0-1.3); Monocytes % 5.3 %; Neutrophils # 6.7 K/mcL (1.6-8.9); Platelet Count 383 K/mcL (140-400); Red Blood Count 3.47 M/mcL (3.82-4.97); Red Cell Distribution Width 13.5 % (11.5-14.5); Segmented Neutrophils % 83.7 %
[2019-06-25 06:15] LABS: VBG HCO3 27 mEq/L (21-27); VBG PCO2 32 mmHg (41-51); VBG PH 7.54 pH Units (7.32-7.42); VBG PO2 145 mmHg (25-50)
[2019-06-25 06:32] LABS: Alanine Aminotransferase 22 Units/L (7-52); Albumin 2.9 g/dL (3.5-5.7); Albumin/Globulin Ratio 0.9 (1.1-2.2); Alkaline Phosphatase 143 Units/L (34-104); Aspartate Amino Transferase 28 Units/L (13-39); BUN/Creatinine Ratio 10 (6-26); Bilirubin,Total 0.3 mg/dL (0.3-1.0); Blood Urea Nitrogen 4 mg/dL (6-20); Calcium 8.2 mg/dL (8.6-10.3); Carbon Dioxide 28 mEq/L (23-29); Chloride 90 mEq/L (98-107); Globulin 3.2 g/dL (2.4-3.5); Glucose 197 mg/dL (70-105); Osmolality,Calculated 264 (280-300); Potassium 3.5 mEq/L (3.5-5.1); Sodium 126 mEq/L (136-145); Total Protein 6.1 g/dL (6.4-8.9); eGFR For African Americans > 60 (> 60); eGFR For Non-African Americans > 60 (> 60)
[2019-06-25] MEDS: Nicotine 21 MG PATCH.TD24 TD SCH (09:25)
[2019-06-25] MEDS: predniSONE 20 MG TABLET PO SCH (09:25)
--- NOTE | 2019-06-25 10:22 | Pulmonology Progress Note ---
<Gurmeet Rivera M - Last Filed: 06/25/19 14:57> Date of Encounter: 06/25/19 Time of Encounter: 09:00 Assessment and Plan (1) Abnormal CT of the chest Current Visit: Yes Status: Acute CT Chest results reveal multiple opacities B/L throughout the lungs; solid, subsolid and tree-in-bud opacities noted concerning for infection vs cancer Also has mediastinal Lymphadenopathy with a suspicous sclerotic lesion of the sternum. Patient has significant smoking history, 2ppd x 40yrs. Additional concerns for cancer include recent 20lb weight loss in addition to night sweats. Alternatively, she does present with S/S of infection; cough with increasing sputum production, tachycardia, leukocytosis, subjective fevers Additional risk factors for atypical/pseudomonal infection include homelessness and emphysema Patient started on Ceftriaxone, Zithromycin and given one round solumedrol Discussed findings at length with patient who does demonstrate overall poor insight and there is concern regarding her ability to follow up O/P. Discussed possibility of ABX inpatient with 4wk follow up for repeat CT and possible Bronch/Biopsy at that time. Patient not able to make definitive declaration regarding inpatient vs outpatient Bronch yeserday d/t possible withdrawal symptoms Discussed bronch again today and patient did state she would like to move forward with inpatient bronch, patient understood and voiced the possible risks and benefits and stated that she would like to know if these pulmonary nodules are in fact cancer but does not know if she would seek treatment Continues to ventilate and oxygenate appropriately Plan: -Nasal MRSA screen positive -Continue Vanc/Zosyn/Doxy, currently day 2 -Plan for Bronchoscopy tomorrow with possible Endobronchial U/S -Continue steroids, bronchodilators (2) Concern about cancer without diagnosis Current Visit: Yes Status: Acute Unintentional Weight Loss, Night sweats, suspicious CT chest findings with roughly [id number] smoking history Plan as above Bronchoscopy with mediastinal lymph node biopsy inpatient vs outpatient still to be determined, will discuss more with patient tomorrow who had difficulty deciding/agreeing to plan of care (3) Sepsis Current Visit: Yes Status: Acute Patient did have tachycardia with leukocytosis on admission Recent worsening cough with increasing sputum production Subjective fevers but afebrile during admission Today fever tachycardia and WBC have all resoleved Plan: -Continue vanc/zosyn/doxy -Fungal/Atypicals workup pending at this time -Rest of plan as above Qualifiers: Sepsis type: sepsis due to unspecified organism Sepsis acute organ dysfunction status: without acute organ dysfunction Qualified Code(s): A41.9 - Sepsis, unspecified organism Subjective Principal diagnosis: Pulmonary Lesions Interval history: Patient seen and examined. Remains considerably anxious appearing despite Ativan 1mg x 4 doses in last 24hrs, however patient has not been scoring on the CIWA scale. Respiratory status remains stable, patient denies SOB, Cough, Wheeze at this time. Did discuss at great length with patient today regarding the risks benefits ultimate goals regarding bronchoscopy for biopsy of suspicious appearing lung nodules. Patient did voice a desire today to go through with the procedure while inpatient and she does voice a desire to know if she has cancer but is still unsure if she would pursue any treatment for it at this time if positive biopsy results. Objective PUL Vital signs: Last Vital Signs Temp 97.5 F L 06/25/19 07:09 Pulse 86 06/25/19 07:09 Resp 16 06/25/19 10:12 BP 168/93 06/25/19 07:09 Pulse Ox 97 06/25/19 10:12 Gen: Alert and oriented, NAD, Vitals noted Head: Atraumatic normocephalic Eyes: anicteric sclera, EOMI ENT: MMM, oropharynx clear Neck: trachea midline, no palpable lymphadenopathy CV: RRR, +2 systolic murmur, no rubs Resp: Coarse breath sounds bilaterally, mild wheeze appreciated on exam, no rales Abd: soft nontender nondistended Ext: no edema, rash, cyanosis Results - Laboratory Findings CBC and BMP: 06/25/19 05:58 06/25/19 05:58 Abnormal lab findings: Abnormal lab results WBC 15.1 K/mcL (4.3-11.1) H 06/24/19 01:43 RBC 3.47 M/mcL (3.82-4.97) L 06/25/19 05:58 Hgb 11.4 g/dL (11.5-15.4) L 06/25/19 05:58 Hct 32.6 % (35.3-44.9) L 06/25/19 05:58 Plt Count 421 K/mcL (140-400) H 06/24/19 01:43 MPV 8.5 fL (9.4-12.4) L 06/25/19 05:58 Neutrophils # 14.1 K/mcL (1.6-8.9) H 06/24/19 01:43 Monocytes # 1.8 K/mcL (0.0-1.3) H 06/23/19 10:38 VBG pH 7.54 pH Units (7.32-7.42) H 06/25/19 06:13 VBG pCO2 32 mmHg (41-51) L 06/25/19 06:13 VBG pO2 145 mmHg (25-50) H 06/25/19 06:13 Sodium 126 mEq/L (136-145) L 06/25/19 05:58 Chloride 90 mEq/L (98-107) L 06/25/19 05:58 BUN 4 mg/dL (6-20) L 06/25/19 05:58 Creatinine 0.39 mg/dL (0.60-1.20) L 06/25/19 05:58 Glucose 197 mg/dL (70-105) H 06/25/19 05:58 Calculated Osmolality 264 (280-300) L 06/25/19 05:58 Calcium 8.2 mg/dL (8.6-10.3) L 06/25/19 05:58 AST 74 Units/L (13-39) H 06/23/19 10:38 Alkaline Phosphatase 143 Units/L (34-104) H 06/25/19 05:58 Serum Total Protein 6.1 g/dL (6.4-8.9) L 06/25/19 05:58 Albumin 2.9 g/dL (3.5-5.7) L 06/25/19 05:58 Globulin 3.8 g/dL (2.4-3.5) H 06/23/19 10:38 Albumin/Globulin Ratio 0.9 (1.1-2.2) L 06/25/19 05:58 Procalcitonin 0.42 ng/mL (0.00-0.15) H 06/23/19 10:38 Ur Specific [place] 1.008 (1.010-1.025) L 06/23/19 11:50 - Microbiology Findings Microbiology Findings: Microbiology, Last 48 Hours 06/23/19 16:50 Legionella Antigen - Final Urine,Clean Catch Streptococcus pneumoniae Antigen (M - Final 06/23/19 10:38 Blood Culture - Preliminary Peripheral Venipuncture Culture is incubating and being continuously monitored for growth. Final report to follow. 06/23/19 10:38 Blood Culture - Preliminary Peripheral Venipuncture Culture is incubating and being continuously monitored for growth. Final report to follow. - Clinical Findings Intake & Output: Intake & Output 06/24/19 06/25/19 06/25/19 23:59 07:59 15:59 Intake Total 1350 / 1670 1100 / 1100 Balance 1350 / 1670 1100 / 1100 Weight 41.3 kg Consult Discharge Plan - Plan Referrals: Selma Guerrero DO [Resident] - 07/03/19 2:00 pm (Please arrive at your appointment one half hour prior to appointment time. Bring ID, insurance cards, and medications within their original bottles to appointment. Please calll 24 hours prior to reschedule and/or cancel. [phone].) <Catrachito Leiva - Last Filed: 06/25/19 20:57> Date of Encounter: 06/25/19 Objective PUL Vital signs: Last Vital Signs Temp 98.2 F 06/25/19 20:19 Pulse 110 06/25/19 20:19 Resp 16 06/25/19 20:19 BP 146/97 06/25/19 20:19 Pulse Ox 94 06/25/19 20:19 Results - Laboratory Findings CBC and BMP: 06/25/19 05:58 06/25/19 05:58 Abnormal lab findings: Abnormal lab results WBC 15.1 K/mcL (4.3-11.1) H 06/24/19 01:43 RBC 3.47 M/mcL (3.82-4.97) L 06/25/19 05:58 Hgb 11.4 g/dL (11.5-15.4) L 06/25/19 05:58 Hct 32.6 % (35.3-44.9) L 06/25/19 05:58 Plt Count 421 K/mcL (140-400) H 06/24/19 01:43 MPV 8.5 fL (9.4-12.4) L 06/25/19 05:58 Neutrophils # 14.1 K/mcL (1.6-8.9) H 06/24/19 01:43 Monocytes # 1.8 K/mcL (0.0-1.3) H 06/23/19 10:38 VBG pH 7.54 pH Units (7.32-7.42) H 06/25/19 06:13 VBG pCO2 32 mmHg (41-51) L 06/25/19 06:13 VBG pO2 145 mmHg (25-50) H 06/25/19 06:13 Sodium 126 mEq/L (136-145) L 06/25/19 05:58 Chloride 90 mEq/L (98-107) L 06/25/19 05:58 BUN 4 mg/dL (6-20) L 06/25/19 05:58 Creatinine 0.39 mg/dL (0.60-1.20) L 06/25/19 05:58 Glucose 197 mg/dL (70-105) H 06/25/19 05:58 Calculated Osmolality 264 (280-300) L 06/25/19 05:58 Calcium 8.2 mg/dL (8.6-10.3) L 06/25/19 05:58 AST 74 Units/L (13-39) H 06/23/19 10:38 Alkaline Phosphatase 143 Units/L (34-104) H 06/25/19 05:58 Serum Total Protein 6.1 g/dL (6.4-8.9) L 06/25/19 05:58 Albumin 2.9 g/dL (3.5-5.7) L 06/25/19 05:58 Globulin 3.8 g/dL (2.4-3.5) H 06/23/19 10:38 Albumin/Globulin Ratio 0.9 (1.1-2.2) L 06/25/19 05:58 Procalcitonin 0.42 ng/mL (0.00-0.15) H 06/23/19 10:38 Ur Specific [place] 1.008 (1.010-1.025) L 06/23/19 11:50 Nasal Screen MRSA (PCR) DETECTED (Not Detect) A 06/25/19 11:10 - Microbiology Findings Microbiology Findings: Microbiology, Last 48 Hours 06/23/19 16:50 Legionella Antigen - Final Urine,Clean Catch Streptococcus pneumoniae Antigen (M - Final - Clinical Findings Intake & Output: Intake & Output 0906/25/19 06/25/19 07:59 15:59 23:59 Intake Total 1100 / 1500 100 / 1500 300 / 1500 Balance 1100 / 1500 100 / 1500 300 / 1500 Weight 41.3 kg - Attending Attestation I saw and evaluated this patient and my medical decision-making was reviewed with the Resident Physician. I agree with the documented findings, disposition and treatment plan as described except to the extent set forth below. We independently had [id number] contact with the patient Patient seen and examined at bedside Labs, radiology, chart personally reviewed. Patient with a tree-in-bud bilateral infiltrates concerning for infection versus inflammatory vs suspected malignancy. Bronchoscopy tomorrow for BAL .Patient v/q mismatch stable .NPO after Midnight
[2019-06-25] MEDS ORDERED: *HR* LORazepam 0.5 MG TABLET PO ONE (14:09)
[2019-06-25] MEDS ORDERED: hydrOXYzine pamoate 25 MG CAPSULE PO ONE (15:45)
--- NOTE | 2019-06-25 17:31 | Internal Med Progress Note ---
Hospitalist Progress Note - Encounter Date of Encounter: 06/25/19 Time of Encounter: 17:29 - Exam Vitals: Temp Pulse Resp BP Pulse Ox 97.9 F 92 17 158/92 95 06/25/19 16:04 06/25/19 16:04 06/25/19 16:06 06/25/19 16:04 06/25/19 16:06 Exam: General: Disheveled appearing. HEENT: No erythema of posterior pharynx. No exudates. Lymphatics: No mandibular or cervical lymphadenopathy Cardiovascular: RRR. No murmurs. No chest wall tenderness. Lungs: Decreased breath sounds throughout. Faint scattered wheezes. Regular chest rise. Abdomen: Non-tender. No rebound or gaurding. Nl bowel sounds. Extremities: No edema. 2+ pulses radial and pedal pulses Skin: No rahses, abrasions, or contusions. Nl cap refill. Psych: Nl attention. 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 5/5 strength. Sensation to light touch and pinprick intact. - Assessment and Plan (1) Community acquired pneumonia Current Visit: Yes Status: Acute Assessment and Plan: Patient with extensive history of smoking presents with productive cough in the setting of meeting sepsis criteria on admission (tachycardia and leukocytosis) with CT imaging concerning for infectious versus neoplastic process. -CT chest with "tree-in-bud opacities throughout the lungs bilaterally. The largest measures up to 1.9 cm in the right upper lobe." Also with mediastinal lymphadenopathy. -Will treat for infectious process while undergoing further workup for neoplastic process -Nasal MRSA was positive PLAN: - Pulmonology consulted: patient now on vanc/zosyn/doxy; plan for bronchoscopy tomorrow - continue steroids and bronchodilators (2) Sepsis Current Visit: Yes Status: Acute Assessment and Plan: Patient with extensive history of smoking presents with productive cough in the setting of meeting sepsis criteria on admission (tachycardia and leukocytosis) with CT imaging concerning for infectious versus neoplastic process. -further workup and clinical picture suggests localized infection in respiratory tract without systemic spread; leukocytosis and tachycardia resolved; blood cultures negative thus far (3) Concern about cancer without diagnosis Current Visit: Yes Status: Acute Assessment and Plan: Hx of weight loss and CT chest with "tree-in-bud opacities throughout the lungs bilaterally. The largest measures up to 1.9 cm in the right upper lobe." Also with mediastinal lymphadenopathy. -Mediastinal lymphadenopathy may be accessible by bronchoscopy for biopsy PLAN: - Pulmonology on board - Nothing by mouth at midnight for possible bronchoscopy tomorrow (4) Abnormal CT of the chest Current Visit: Yes Status: Acute Assessment and Plan: See above (5) Alcohol abuse Current Visit: Yes Status: Acute Assessment and Plan: Will have nursing assess for alcohol withdrawal and initiate CIWA if positive. (6) Tobacco abuse Current Visit: Yes Status: Acute Assessment and Plan: Nicotine patch - Time Spent with Patient Total time spent is greater than 50% in coordination of care (as documented) at patient's floor/unit and/or counseling patient:37 minutes Plan of Care Discussed with: patient Internal Medicine: Result - Labs CBC & Chem 7: 06/25/19 05:58 06/25/19 05:58 Labs: Short CBC 06/25/19 Range/Units 05:58 WBC 8.0 (4.3-11.1) K/mcL Hgb 11.4 L (11.5-15.4) g/dL Hct 32.6 L (35.3-44.9) % Plt Count 383 (140-400) K/mcL Neutrophils # 6.7 (1.6-8.9) K/mcL BMP 06/25/19 05:58 Sodium 126 L Potassium 3.5 Chloride 90 L Carbon Dioxide 28 BUN 4 L Creatinine 0.39 L Glucose 197 H Calcium 8.2 L Liver Function 06/25/19 Range/Units 05:58 Total Bilirubin 0.3 (0.3-1.0) mg/dL AST 28 (13-39) Units/L ALT 22 (7-52) Units/L Alkaline Phosphatase 143 H (34-104) Units/L Albumin 2.9 L (3.5-5.7) g/dL Consult Discharge Plan - Plan Referrals: Selma Guerrero, [Resident] - 07/03/19 2:00 pm (Please arrive at your appointment one half hour prior to appointment time. Bring ID, insurance cards, and medications within their original bottles to appointment. Please calll 24 hours prior to reschedule and/or cancel. [phone].) (1) Community acquired pneumonia Qualifiers: Laterality: right Lung location: unspecified part of lung Qualified Code(s): J18.9 - Pneumonia, unspecified organism (2) Sepsis Qualifiers: Sepsis type: sepsis due to unspecified organism Sepsis acute organ dysfunction status: without acute organ dysfunction Qualified Code(s): A41.9 - Sepsis, unspecified organism
[2019-06-25] MEDS: Acetaminophen 325 MG TABLET PO PRN (20:31)
[2019-06-25] MEDS: *HR* LORazepam 2 MG/ML VIAL IVP PRN (20:33)
[2019-06-26] MEDS: Piperacillin/Tazobactam 3.375 GM in 0.9 % Sodium Chloride Mini Bag 100 ML IVPB SCH ×4 (00:20→23:15)
[2019-06-26] MEDS: traMADol 50 MG TABLET PO PRN (02:48)
[2019-06-26] MEDS: *HR* LORazepam 2 MG/ML VIAL IVP PRN ×2 (02:48→07:49)
[2019-06-26] MEDS: Vancomycin 500 MG in 0.9 % Sodium Chloride Mini Bag 100 ML IVPB SCH (03:38)
[2019-06-26] MEDS: Ipratropium/Albuterol Neb 3 ML IH SCH ×4 (04:36→22:10)
[2019-06-26] MEDS: Doxycycline 100 MG in 0.9 % Sodium Chloride Mini Bag 100 ML IVPB SCH ×2 (05:40→18:20)
[2019-06-26] MEDS: Nicotine 21 MG PATCH.TD24 TD SCH (07:48)
[2019-06-26] MEDS: predniSONE 20 MG TABLET PO SCH (07:49)
[2019-06-26] MEDS: Acetaminophen 325 MG TABLET PO PRN ×2 (07:55→15:26)
[2019-06-26 08:56] LABS: Hematocrit 36.2 % (35.3-44.9); Hemoglobin 12.5 g/dL (11.5-15.4); Mean Corpuscular HGB Conc 34.5 g/dL (31.6-35.5); Mean Corpuscular Hemoglobin 32.1 pg (28.0-33.3); Mean Corpuscular Volume 93.1 fL (83.0-100.0); Mean Platelet Volume 8.2 fL (9.4-12.4); Platelet Count 413 K/mcL (140-400); Red Blood Count 3.89 M/mcL (3.82-4.97); Red Cell Distribution Width 13.9 % (11.5-14.5); White Blood Count 6.1 K/mcL (4.3-11.1)
[2019-06-26 09:23] LABS: BUN/Creatinine Ratio 10 (6-26); Blood Urea Nitrogen 5 mg/dL (6-20); Calcium 8.7 mg/dL (8.6-10.3); Carbon Dioxide 27 mEq/L (23-29); Chloride 95 mEq/L (98-107); Glucose 88 mg/dL (70-105); Osmolality,Calculated 269 (280-300); Potassium 2.9 mEq/L (3.5-5.1); Sodium 131 mEq/L (136-145); eGFR For African Americans > 60 (> 60); eGFR For Non-African Americans > 60 (> 60)
--- NOTE | 2019-06-26 11:08 | Internal Med Progress Note ---
Hospitalist Progress Note - Encounter Date of Encounter: 06/26/19 Time of Encounter: 11:05 - Subjective Interval History: No acute changes overnight. Patient has no complaints. She is however now wanting to delay the bronchoscopy. She is not providing a specific reason, she says she is not ready - Exam Vitals: Temp Pulse Resp BP Pulse Ox 97.5 F L 105 20 150/96 92 06/26/19 10:41 06/26/19 10:41 06/26/19 10:41 06/26/19 10:41 06/26/19 10:41 Exam: General: Disheveled appearing. HEENT: No erythema of posterior pharynx. No exudates. Lymphatics: No mandibular or cervical lymphadenopathy Cardiovascular: RRR. No murmurs. No chest wall tenderness. Lungs: Decreased breath sounds throughout. Faint scattered wheezes. Regular chest rise. Abdomen: Non-tender. No rebound or gaurding. Nl bowel sounds. Extremities: No edema. 2+ pulses radial and pedal pulses Skin: No rahses, abrasions, or contusions. Nl cap refill. Psych: Nl attention. 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 Sensation to light touch and pinprick intact. - Assessment and Plan (1) Community acquired pneumonia Current Visit: Yes Status: Acute Assessment and Plan: Patient with extensive history of smoking presents with productive cough in the setting of meeting sepsis criteria on admission (tachycardia and leukocytosis) with CT imaging concerning for infectious versus neoplastic process. -CT chest with "tree-in-bud opacities throughout the lungs bilaterally. The largest measures up to 1.9 cm in the right upper lobe." Also with mediastinal lymphadenopathy. -Will treat for infectious process while undergoing further workup for neoplastic process -Nasal MRSA was positive -patient wanting to delay bronchoscopy for unknown reason PLAN: - Pulmonology consulted: patient now on vanc/zosyn/doxy; will discuss if bronchoscopy can be done outpatient if patient does not want to do now; will potentially change IV meds to PO in prep for discharge if patient will not be getting bronchoscopy on this admission - continue steroids and bronchodilators (2) Sepsis Current Visit: Yes Status: Acute Assessment and Plan: Patient with extensive history of smoking presents with productive cough in the setting of meeting sepsis criteria on admission (tachycardia and leukocytosis) with CT imaging concerning for infectious versus neoplastic process. -further workup and clinical picture suggests localized infection in respiratory tract without systemic spread; leukocytosis and tachycardia resolved; blood cultures negative thus far (3) Concern about cancer without diagnosis Current Visit: Yes Status: Acute Assessment and Plan: Hx of weight loss and CT chest with "tree-in-bud opacities throughout the lungs bilaterally. The largest measures up to 1.9 cm in the right upper lobe." Also with mediastinal lymphadenopathy. -Mediastinal lymphadenopathy may be accessible by bronchoscopy for biopsy PLAN: - Pulmonology on board - Nothing by mouth at midnight for possible bronchoscopy tomorrow (4) Abnormal CT of the chest Current Visit: Yes Status: Acute Assessment and Plan: See above (5) Alcohol abuse Current Visit: Yes Status: Acute Assessment and Plan: Will have nursing assess for alcohol withdrawal and initiate CIWA if positive. (6) Tobacco abuse Current Visit: Yes Status: Acute Assessment and Plan: Nicotine patch - Time Spent with Patient Total time spent is greater than 50% in coordination of care (as documented) at patient's floor/unit and/or counseling patient:30 minutes Plan of Care Discussed with: patient Internal Medicine: Result - Labs CBC & Chem 7: 06/26/19 08:50 06/26/19 08:50 Labs: Short CBC 06/26/19 Range/Units 08:50 WBC 6.1 (4.3-11.1) K/mcL Hgb 12.5 (11.5-15.4) g/dL Hct 36.2 (35.3-44.9) % Plt Count 413 H (140-400) K/mcL BMP 06/26/19 08:50 Sodium 131 L Potassium 2.9 L Chloride 95 L Carbon Dioxide 27 BUN 5 L Creatinine 0.49 L Glucose 88 Calcium 8.7 Consult Discharge Plan - Plan Referrals: Selma Guerrero DO [Resident] - 07/03/19 2:00 pm (Please arrive at your appointment one half hour prior to appointment time. Bring ID, insurance cards, and medications within their original bottles to appointment. Please calll 24 hours prior to reschedule and/or cancel. [phone].) (1) Community acquired pneumonia Qualifiers: Laterality: right Lung location: unspecified part of lung Qualified Code(s): J18.9 - Pneumonia, unspecified organism (2) Sepsis Qualifiers: Sepsis type: sepsis due to unspecified organism Sepsis acute organ dysfunction status: without acute organ dysfunction Qualified Code(s): A41.9 - Sepsis, unspecified organism
--- NOTE | 2019-06-26 11:11 | Pulmonology Progress Note ---
Date of Encounter: 06/26/19 Time of Encounter: 09:00 Assessment and Plan (1) Bronchiolitis Current Visit: Yes Status: Acute Patient has bilateral tree-in-bud infiltrates suggestive of bronchiolitis most likely infectious patient is having chronic cough and sputum production with some fever or chills recommended bronchoscopy patient declined we will reassess her tomorrow. Keep her nothing by mouth after midnight (2) Sepsis Current Visit: Yes Status: Acute Most likely pulmonary is the source of sepsis conductive with broad-spectrum antibiotics. Qualifiers: Sepsis type: sepsis due to unspecified organism Sepsis acute organ dysfunction status: without acute organ dysfunction Qualified Code(s): A41.9 - Sepsis, unspecified organism (3) Alcohol abuse Current Visit: Yes Status: Acute Patient has significant alcohol abuse now she is in alcohol withdrawal Ativan according to [facility] protocol. (4) Tobacco abuse Current Visit: Yes Status: Acute Counseled the importance of smoking cessation. Subjective Principal diagnosis: Pulmonary Lesions Interval history: Patient presenting with bilateral tree-in-bud infiltrates suggestive of infective bronchiolitis with mediastinal hilar lymphadenopathy most likely reactive lymphadenopathy . Patient is today she is still anxious refusing bronc hoscopy with BAL. Objective PUL Vital signs: Last Vital Signs Temp 97.5 F L 06/26/19 10:41 Pulse 105 06/26/19 10:41 Resp 20 06/26/19 10:41 BP 150/96 06/26/19 10:41 Pulse Ox 92 06/26/19 10:41 General appearance: no acute distress Eyes: nonicteric ENT: oropharynx moist Auscultation: bilateral: rales (Bilateral scattered) Cardiovascular: regular rate and rhythm Gastrointestinal: normoactive bowel sounds Integumentary: normal Extremities: no edema normal mental status, CN II-XII normal anxious Results - Laboratory Findings CBC and BMP: 06/26/19 08:50 06/26/19 08:50 Abnormal lab findings: Abnormal lab results WBC 15.1 K/mcL (4.3-11.1) H 06/24/19 01:43 RBC 3.47 M/mcL (3.82-4.97) L 06/25/19 05:58 Hgb 11.4 g/dL (11.5-15.4) L 06/25/19 05:58 Hct 32.6 % (35.3-44.9) L 06/25/19 05:58 Plt Count 413 K/mcL (140-400) H 06/26/19 08:50 MPV 8.2 fL (9.4-12.4) L 06/26/19 08:50 Neutrophils # 14.1 K/mcL (1.6-8.9) H 06/24/19 01:43 Monocytes # 1.8 K/mcL (0.0-1.3) H 06/23/19 10:38 VBG pH 7.54 pH Units (7.32-7.42) H 06/25/19 06:13 VBG pCO2 32 mmHg (41-51) L 06/25/19 06:13 VBG pO2 145 mmHg (25-50) H 06/25/19 06:13 Sodium 131 mEq/L (136-145) L 06/26/19 08:50 Potassium 2.9 mEq/L (3.5-5.1) L 06/26/19 08:50 Chloride 95 mEq/L (98-107) L 06/26/19 08:50 BUN 5 mg/dL (6-20) L 06/26/19 08:50 Creatinine 0.49 mg/dL (0.60-1.20) L 06/26/19 08:50 Glucose 197 mg/dL (70-105) H 06/25/19 05:58 Calculated Osmolality 269 (280-300) L 06/26/19 08:50 Calcium 8.2 mg/dL (8.6-10.3) L 06/25/19 05:58 AST 74 Units/L (13-39) H 06/23/19 10:38 Alkaline Phosphatase 143 Units/L (34-104) H 06/25/19 05:58 Serum Total Protein 6.1 g/dL (6.4-8.9) L 06/25/19 05:58 Albumin 2.9 g/dL (3.5-5.7) L 06/25/19 05:58 Globulin 3.8 g/dL (2.4-3.5) H 06/23/19 10:38 Albumin/Globulin Ratio 0.9 (1.1-2.2) L 06/25/19 05:58 Procalcitonin 0.42 ng/mL (0.00-0.15) H 06/23/19 10:38 Ur Specific [place] 1.008 (1.010-1.025) L 06/23/19 11:50 Nasal Screen MRSA (PCR) DETECTED (Not Detect) A 06/25/19 11:10 - Microbiology Findings Microbiology Findings: Microbiology, Last 48 Hours 06/23/19 16:50 Legionella Antigen - Final Urine,Clean Catch Streptococcus pneumoniae Antigen (M - Final - Clinical Findings Intake & Output: Intake & Output 06/25/19 06/26/19 06/26/19 23:59 07:59 15:59 Intake Total 300 / 1500 450 / 450 Balance 300 / 1500 450 / 450 Weight 43.8 kg Consult Discharge Plan - Plan Referrals: Selma Guerrero, [Resident] - 07/03/19 2:00 pm (Please arrive at your appointment one half hour prior to appointment time. Bring ID, insurance cards, and medications within their original bottles to appointment. Please calll 24 hours prior to reschedule and/or cancel. [phone].)
[2019-06-26 23:30] LABS: QuantiFERON Mitogen minus NIL 8.97 IU/mL
[2019-06-27] MEDS: Acetaminophen 325 MG TABLET PO PRN ×2 (00:01→10:21)
[2019-06-27] MEDS: traMADol 50 MG TABLET PO PRN (04:02)
[2019-06-27 04:32] LABS: Hematocrit 34.7 % (35.3-44.9); Mean Corpuscular HGB Conc 34.6 g/dL (31.6-35.5); Mean Corpuscular Hemoglobin 32.9 pg (28.0-33.3); Mean Corpuscular Volume 95.1 fL (83.0-100.0); Mean Platelet Volume 8.4 fL (9.4-12.4); Platelet Count 429 K/mcL (140-400); Red Blood Count 3.65 M/mcL (3.82-4.97); Red Cell Distribution Width 13.9 % (11.5-14.5); White Blood Count 6.6 K/mcL (4.3-11.1)
[2019-06-27] MEDS: Ipratropium/Albuterol Neb 3 ML IH SCH ×2 (04:40→10:55)
[2019-06-27 04:48] LABS: BUN/Creatinine Ratio 16 (6-26); Blood Urea Nitrogen 9 mg/dL (6-20); Calcium 8.3 mg/dL (8.6-10.3); Carbon Dioxide 25 mEq/L (23-29); Chloride 97 mEq/L (98-107); Glucose 86 mg/dL (70-105); Osmolality,Calculated 274 (280-300); Potassium 2.8 mEq/L (3.5-5.1); Sodium 133 mEq/L (136-145); eGFR For African Americans > 60 (> 60); eGFR For Non-African Americans > 60 (> 60)
[2019-06-27] MEDS: Doxycycline 100 MG in 0.9 % Sodium Chloride Mini Bag 100 ML IVPB SCH (05:22)
[2019-06-27 09:51] LABS: ANA IgG by ELISA NONE DETECTED (None Detected); QuantiFERON NIL 0.01 IU/mL; QuantiFERON-TB Gold In-Tube NEGATIVE; Serine Protease-3 Antibody 3 AU/mL (0-19)
--- NOTE | 2019-06-27 09:55 | Pulmonology Progress Note ---
Date of Encounter: 06/27/19 Time of Encounter: 09:30 Assessment and Plan (1) Bronchiolitis Current Visit: Yes Status: Acute Patient has bilateral tree-in-bud infiltrates suggestive of bronchiolitis most likely infectious patient is having chronic cough and sputum production with some fever or chills recommended bronchoscopy patient declined the procedure twice she does not want to do bronchoscopy she wants to try antibiotics and steroids and she will come and see me in the clinic in 4 weeks. To sent home on doxycycline 100 mg twice daily for 14 days and to take a prednisone taper to 10 mg and will evaluate her in the clinic. Patient will need a repeat imaging in 4-6 weeks. We will arrange that in the clinic I explained the importance of following up because still malignancy is low on differential patient verbalized understanding (2) Sepsis Current Visit: Yes Status: Acute Most likely pulmonary is the source of sepsis conductive with broad-spectrum antibiotics.. On discharged to sent home on a doxycycline 100 mg twice daily for 14 days and to be steroid taper to 10 mg Qualifiers: Sepsis type: sepsis due to unspecified organism Sepsis acute organ dysfunction status: without acute organ dysfunction Qualified Code(s): A41.9 - Sepsis, unspecified organism (3) Alcohol abuse Current Visit: Yes Status: Acute Patient has significant alcohol abuse now she is in alcohol withdrawal Ativan according to [facility] protocol. (4) Tobacco abuse Current Visit: Yes Status: Acute Counseled the importance of smoking cessation. (5) COPD exacerbation Current Visit: Yes Status: Acute To sent home on antibiotics and steroids as mentioned above to send her home on albuterol nebulizer and Symbicort twice a day. And we will optimize the bronchodilator regimen as outpatient. Subjective Principal diagnosis: Pulmonary Lesions Interval history: Patient presenting with bilateral tree-in-bud infiltrates suggestive of in fective bronchiolitis with mediastinal hilar lymphadenopathy most likely reactive lymphadenopathy . Patient is today she is still anxious refusing bronchoscopy with BAL. 06/27 patient says her breathing hodges she is better but still feels anxious patient declined bronchoscopy today morning to go home patient denies any chest pain chest tightness denies any palpitations syncope Objective PUL Vital signs: Last Vital Signs Temp 98.2 F 06/27/19 06:46 Pulse 96 06/27/19 06:46 Resp 16 06/27/19 06:46 BP 156/90 06/27/19 06:46 Pulse Ox 95 06/27/19 06:46 General appearance: no acute distress Auscultation: right: rales Cardiovascular: regular rate and rhythm Gastrointestinal: hypoactive bowel sounds Extremities: no cyanosis, no edema Musculoskeletal: no deformities non-focal exam, CN II-XII normal anxious Results - Laboratory Findings CBC and BMP: 06/27/19 03:37 06/27/19 03:37 Abnormal lab findings: Abnormal lab results WBC 15.1 K/mcL (4.3-11.1) H 06/24/19 01:43 RBC 3.65 M/mcL (3.82-4.97) L 06/27/19 03:37 Hgb 11.4 g/dL (11.5-15.4) L 06/25/19 05:58 Hct 34.7 % (35.3-44.9) L 06/27/19 03:37 Plt Count 429 K/mcL (140-400) H 06/27/19 03:37 MPV 8.4 fL (9.4-12.4) L 06/27/19 03:37 Neutrophils # 14.1 K/mcL (1.6-8.9) H 06/24/19 01:43 Monocytes # 1.8 K/mcL (0.0-1.3) H 06/23/19 10:38 VBG pH 7.54 pH Units (7.32-7.42) H 06/25/19 06:13 VBG pCO2 32 mmHg (41-51) L 06/25/19 06:13 VBG pO2 145 mmHg (25-50) H 06/25/19 06:13 Sodium 133 mEq/L (136-145) L 06/27/19 03:37 Potassium 2.8 mEq/L (3.5-5.1) L 06/27/19 03:37 Chloride 97 mEq/L (98-107) L 06/27/19 03:37 BUN 5 mg/dL (6-20) L 06/26/19 08:50 Creatinine 0.56 mg/dL (0.60-1.20) L 06/27/19 03:37 Glucose 197 mg/dL (70-105) H 06/25/19 05:58 Calculated Osmolality 274 (280-300) L 06/27/19 03:37 Calcium 8.3 mg/dL (8.6-10.3) L 06/27/19 03:37 AST 74 Units/L (13-39) H 06/23/19 10:38 Alkaline Phosphatase 143 Units/L (34-104) H 06/25/19 05:58 Serum Total Protein 6.1 g/dL (6.4-8.9) L 06/25/19 05:58 Albumin 2.9 g/dL (3.5-5.7) L 06/25/19 05:58 Globulin 3.8 g/dL (2.4-3.5) H 06/23/19 10:38 Albumin/Globulin Ratio 0.9 (1.1-2.2) L 06/25/19 05:58 Procalcitonin 0.42 ng/mL (0.00-0.15) H 06/23/19 10:38 Ur Specific [place] 1.008 (1.010-1.025) L 06/23/19 11:50 Nasal Screen MRSA (PCR) DETECTED (Not Detect) A 06/25/19 11:10 - Clinical Findings Intake & Output: Intake & Output 06/26/19 06/27/19 06/27/19 23:59 07:59 15:59 Intake Total 450 / 1120 550 / 550 0 / 550 Output Total 0 / 0 0 / 0 Balance 450 / 1120 550 / 550 0 / 550 Weight 44 kg Consult Discharge Plan - Plan Additional Instructions: patient to f/u with pulmonology in 4 weeks Referrals: Selma Guerrero, [Resident] - 07/03/19 2:00 pm (Please arrive at your appointment one half hour prior to appointment time. Bring ID, insurance cards, and medications within their original bottles to appointment. Please calll 24 hours prior to reschedule and/or cancel. [phone].) Prescriptions: Doxycycline 100 mg PO BID #12 capsule Ipratropium/Albuterol Neb [Duoneb] 3 ml IH [id number] #20 inhsol predniSONE [PredniSONE] 10 mg PO DAILY #30 tablet predniSONE [PredniSONE] 40 mg PO DAILY #1 tablet Budesonide/Formoterol 80/4.5 [Symbicort 80/4.5] 0 gm IH BIDR #1 hfa.[email or web address]
[2019-06-27] MEDS: predniSONE 20 MG TABLET PO SCH (10:21)
[2019-06-27] MEDS: Piperacillin/Tazobactam 3.375 GM in 0.9 % Sodium Chloride Mini Bag 100 ML IVPB SCH (10:22)
[2019-06-27] MEDS: Nicotine 21 MG PATCH.TD24 TD SCH (10:22)
--- NOTE | 2019-06-27 10:36 | Discharge Summary ---
Orders not resulted at time of discharge: Pending orders 06/23/19 10:38 Culture,Blood [BC] Stat 06/23/19 19:00 Culture,Sputum with Gram Stain [RM] Routine 06/24/19 18:23 REBEKAH IgG MO rflx IFA Routine Coccidioides Ab by CF Routine Coccidioides immitis Ab by ID Routine MPO/PR3 (ANCA) Antibodies Routine 06/25/19 02:57 Histoplasma galactomannan,Ur Routine Date of Encounter: 06/27/19 Time of Encounter: 10:30 - Discharge Diagnosis (1) Community acquired pneumonia Priority: Primary Status: Acute Qualifiers: Laterality: right Lung location: unspecified part of lung Qualified Code(s): J18.9 - Pneumonia, unspecified organism (2) Sepsis Priority: Secondary Status: Acute Qualifiers: Sepsis type: sepsis due to unspecified organism Sepsis acute organ dysfunction status: without acute organ dysfunction Qualified Code(s): A41.9 - Sepsis, unspecified organism (3) Concern about cancer without diagnosis Priority: Secondary Status: Acute (4) Abnormal CT of the chest Priority: Secondary Status: Acute (5) Alcohol abuse Priority: Secondary Status: Acute (6) Tobacco abuse Priority: Secondary Status: Acute Hospital course: Ms. Stewart is a 58 year old female with PMH of tobacco abuse presented with productive cough. CT showed bilateral tree-in-bud infiltrates suggestive of bronchiolitis. Dude to weight loss and smoking there was concern for possible malignancy too as CT showed mediastinal hilar lymphadenophthy. Pulm was consulted and patient was started on vanc, zosyn and doxycycline. Initially plan was for bronchoscopy but patient refused. Patient was clinically stable on day of discharge. She will be discharged on doxycycline to complete course as well as symbicort and nebulizer treatments per pulmonology along with steroid taper. She will f/u with pulmonology within 4 weeks of discharge. Discharge discussed with: patient - Time Spent with Patient Total time spent providing and/or coordinating discharge services: 40 minutes - Discharge Medications Prescriptions: New RX: Doxycycline 100 mg PO BID #12 capsule predniSONE [PredniSONE] 10 mg PO DAILY #30 tablet Budesonide/Formoterol 80/4.5 [Symbicort 80/4.5] 0 gm IH BIDR #1 hfa.aer.ad RX: Ipratropium/Albuterol Neb [Duoneb] 3 ml IH [id number] #20 inhsol RX: predniSONE [PredniSONE] 40 mg PO DAILY #1 tablet Home Medications: Budesonide/Formoterol 80/4.5 [Symbicort 80/4.5] 0 gm IH BIDR #1 hfa.aer.ad 06/27/19 [Rx] RX: Doxycycline 100 mg PO BID #12 capsule 06/27/19 [Rx] RX: Ipratropium/Albuterol Neb [Duoneb] 3 ml IH [id number] #20 inhsol 06/27/19 [Rx] RX: predniSONE [PredniSONE] 40 mg PO DAILY #1 tablet 06/27/19 [Rx] predniSONE [PredniSONE] 10 mg PO DAILY #30 tablet 06/27/19 [Rx] Allergies/Adverse Reactions: Allergy/AdvReac Type Severity Reaction Status Date / Time No Known Allergies Allergy Verified 06/23/19 20:40 Date of admission: 06/25/19 14:57 Primary care physician: PCP NONE Consults: 06/23/19 19:01 Consult to Pulmonology [CONS] Routine Consulting Provider: [facility] Reason for Consult: CT with concern for neoplastic process Call Completed: Yes 06/24/19 08:23 Consult to Nurse Navigator [CONS] Routine Comment: PNEUMONIA Discharging clinician: Onesimo Dubon Anticipated date of discharge: 06/27/19 - Constitutional Vitals: Temp Pulse Resp BP Pulse Ox 98.2 F 96 16 156/90 95 06/27/19 06:46 06/27/19 06:46 06/27/19 06:46 06/27/19 06:46 06/27/19 06:46 General appearance: Present: A&O X 3, no acute distress, answers questions appropriately Exam: General: Disheveled appearing. HEENT: No erythema of posterior pharynx. No exudates. Lymphatics: No mandibular or cervical lymphadenopathy Cardiovascular: RRR. No murmurs. No chest wall tenderness. Lungs: CTAB, Regular chest rise. Abdomen: Non-tender. No rebound or gaurding. Nl bowel sounds. Extremities: No edema. 2+ pulses radial and pedal pulses Skin: No rahses, abrasions, or contusions. Nl cap refill. Psych: Nl attention. A&Ox3 Neuro: wallboard worker II-XII intact. 5/5 strength. Sensation to light touch and pinprick intact. - Patient Status Disposition: Home, Self-Care Condition: Fair Functional capacity at discharge: independent ambulation Overall status at discharge: patient is back to baseline - Discharge Instructions Follow Up With: Selma Guerrero DO [Resident] - 07/03/19 2:00 pm (Please arrive at your appoin tment one half hour prior to appointment time. Bring ID, insurance cards, and medications within their original bottles to appointment. Please calll 24 hours prior to reschedule and/or cancel. [phone].) Additional Instructions: patient to f/u with pulmonology in 4 weeks - Diet and Activity Activity: resume usual activities as tolerated Diet: advance to your usual diet
[2019-06-27 11:21] VITALS: BP 132/81
[2019-06-27] MEDS ORDERED: Aminoglycoside Consult 1 EACH MC ONE (16:00)
[2019-06-28 10:17] LABS: Coccidioides Ab by CF <1:2 (<1:2)
== END 2019-06-27 16:01 | disposition home or self-care (01) | DRG 720 ==
LOC: EMEROOARM 10:01 → 3BNU 10:01 → SUATTDRO 14:55 → 3BNU 15:21
PROVIDERS: ADMIT Student in an Organized Health Care Education/Training Program; ATTEND Family Medicine